=== PATIENT | female | born 1980 | race Caucasian/White ===

== ENCOUNTER 2022-06-11 08:20 | Outpatient (CLI) | payer BC, OTHER | END 2022-06-11 08:21 | disposition home or self-care (01) | LOC: CSHCT 08:20 | PROVIDERS: ATTEND Otolaryngology Plastic Surgery within the Head & Neck | DX: H72.91 Unspecified perforation of tympanic membrane, right ear (principal) | CPT/HCPCS: 70480 ==

== ENCOUNTER 2023-01-29 09:50 | Outpatient (CLI) | payer BC, OTHER | END 2023-01-29 09:51 | disposition home or self-care (01) | LOC: CSHRAD 09:50 | PROVIDERS: ATTEND Family Medicine | DX: M54.2 Cervicalgia (principal); M54.6 Pain in thoracic spine; M47.812 Spondylosis without myelopathy or radiculopathy, cervical region; M47.814 Spondylosis without myelopathy or radiculopathy, thoracic region | CPT/HCPCS: 72040; 72072 ==

== ENCOUNTER 2023-03-29 08:06 | Outpatient (CLI) | payer BC, OTHER ==
[2023-03-29] MEDS ORDERED: Iopamidol 300 61% 100 ML VIAL FS ONE (09:52)
== END 2023-03-29 08:07 | disposition home or self-care (01) ==
LOC: CSHCT 08:06
PROVIDERS: ATTEND Family Medicine
DX: R22.0 Localized swelling, mass and lump, head (principal); K13.79 Other lesions of oral mucosa; J34.89 Other specified disorders of nose and nasal sinuses
CPT/HCPCS: 70491; Q9967